=== PATIENT | female | born 1985 | race Caucasian/White ===

== ENCOUNTER 2018-11-20 06:26 | Day surgery (SDC) | payer OTHER | END 2018-11-20 12:30 | disposition home or self-care (01) | LOC: AMB-ENDOS 06:26 | DX: K64.1 Second degree hemorrhoids (principal) ==

== ENCOUNTER 2021-02-20 15:15 | Inpatient (IN) | payer OTHER ==
[~2021-02-20] VITALS: Ht 167.6 cm; Wt 71.7 kg
[2021-02-24] MEDS ORDERED: FOLIC ACID0.8 M1 PO (19:25)
[2021-02-24] MEDS ORDERED: PRENATABS RX T1 EACH PO (19:26)
[2021-02-24] MEDS ORDERED: NASAL MIST126 ML (19:26)
== END 2021-02-25 10:23 | disposition home or self-care (01) | DRG 833 ==
LOC: OB/GYN 15:15 → LDR 02-24 17:48
PROVIDERS: ADMIT Obstetrics & Gynecology Maternal & Fetal Medicine; ATTEND Obstetrics & Gynecology Maternal & Fetal Medicine
PROC: 4A1HXFZ Monitoring of Products of Conception, Cardiac Rhythm, External Approach (ICD-10-PCS; principal; 2021-02-24)
DX: O47.1 False labor at or after 37 completed weeks of gestation (principal); O99.820 Streptococcus B carrier state complicating pregnancy; Z3A.37 37 weeks gestation of pregnancy; Z20.822 Contact with and (suspected) exposure to COVID-19

== ENCOUNTER 2021-02-28 14:15 | Inpatient (IN) | payer OTHER ==
[~2021-02-28] VITALS: Ht 167.6 cm; Wt 73.0 kg
[~2021-02-28 14:15] MED LIST: FOLIC ACID0.8 M1 PO; NASAL MIST126 ML; PRENATABS RX T1 EACH PO
== END 2021-03-11 12:42 | disposition home or self-care (01) | DRG 788 ==
LOC: SURG-SUITE 03-08 04:46 → LDR 03-08 04:46 → SURG-SUITE 03-08 16:31 → OB/GYN 03-13 14:15
PROVIDERS: ADMIT Obstetrics & Gynecology Maternal & Fetal Medicine; ATTEND Obstetrics & Gynecology Maternal & Fetal Medicine
PROC: 3E033VJ Introduction of Other Hormone into Peripheral Vein, Percutaneous Approach (ICD-10-PCS; 2021-03-08)
PROC: 10907ZC Drainage of Amniotic Fluid, Therapeutic from Products of Conception, Via Natural or Artificial Opening (ICD-10-PCS; 2021-03-08)
PROC: 4A1HXFZ Monitoring of Products of Conception, Cardiac Rhythm, External Approach (ICD-10-PCS; 2021-03-08)
PROC: 10D00Z1 Extraction of Products of Conception, Low, Open Approach (ICD-10-PCS; principal; 2021-03-08 14:00)
DX: O62.1 Secondary uterine inertia (principal); O76 Abnormality in fetal heart rate and rhythm complicating labor and delivery; Z3A.39 39 weeks gestation of pregnancy; Z37.0 Single live birth; Z20.822 Contact with and (suspected) exposure to COVID-19

== ENCOUNTER 2021-03-06 11:44 | Outpatient (CLI) | payer OTHER | END 2021-03-06 12:19 | disposition home or self-care (01) | LOC: NST 11:44 | PROVIDERS: ATTEND Obstetrics & Gynecology Maternal & Fetal Medicine | DX: Z34.83 Encounter for supervision of other normal pregnancy, third trimester (principal) ==

== ENCOUNTER 2022-12-10 09:43 | Outpatient (CLI) | payer OTHER | END 2022-12-10 10:41 | disposition home or self-care (01) | LOC: NST 09:43 | PROVIDERS: ATTEND Obstetrics & Gynecology Gynecology | DX: Z34.83 Encounter for supervision of other normal pregnancy, third trimester (principal) ==

== ENCOUNTER 2022-12-17 11:15 | Inpatient (IN) | payer OTHER ==
[~2022-12-17] VITALS: Ht 167.6 cm; Wt 3.2 kg
== END 2022-12-28 14:10 | disposition home or self-care (01) | DRG 785 ==
LOC: O/R 12-26 06:50 → OB/GYN 12-26 06:50
PROVIDERS: ADMIT Obstetrics & Gynecology; ATTEND Obstetrics & Gynecology
PROC: 0UB70ZZ Excision of Bilateral Fallopian Tubes, Open Approach (ICD-10-PCS; 2022-12-26)
PROC: 4A1HXCZ Monitoring of Products of Conception, Cardiac Rate, External Approach (ICD-10-PCS; 2022-12-26)
PROC: 10D00Z1 Extraction of Products of Conception, Low, Open Approach (ICD-10-PCS; principal; 2022-12-26 09:15)
DX: O34.211 Maternal care for low transverse scar from previous cesarean delivery (principal); O99.824 Streptococcus B carrier state complicating childbirth; Z3A.39 39 weeks gestation of pregnancy; Z37.0 Single live birth; Z30.2 Encounter for sterilization; Z20.822 Contact with and (suspected) exposure to COVID-19